=== PATIENT | female | born 1980 | race Caucasian/White ===

== ENCOUNTER 2023-01-10 12:18 | Emergency (ER) | payer OTHER ==
[2023-01-10 12:27] VITALS: TEMP 98.3; BMI 28.3
[2023-01-10] MEDS ORDERED: MAG HYDROX/AL HYDROX/SIMETH -MYLANTA- ORAL SUSPENSION PO ONE (13:10)
[2023-01-10] MEDS ORDERED: PANTOPRAZOLE SODIUM 40 MG VIAL IVPUSH ONE (13:10)
[2023-01-10] MEDS ORDERED: SUCRALFATE 1 GM/10 ML UNIT DOSE CUPS PO ONE (13:11)
[2023-01-10] MEDS ORDERED: LACTATED RINGERS SOLUTION 1000 ML INFUS.BAG IV ONE (13:11)
[2023-01-10] MEDS ORDERED: MAG HYDROX/AL HYDROX/SIMETH 30 ML UNIT-DOSE CUP ONE (13:32)
[2023-01-10] MEDS ORDERED: PANTOPRAZOLE SODIUM 40 MG VIAL ONE (13:32)
[2023-01-10] MEDS ORDERED: SUCRALFATE 1 GM TABLET (FP) ONE (13:32)
[2023-01-10 14:17] LABS: BASO % 0.5 % (0-2.0); EOS % 1.9 % (0-4.5); HEMATOCRIT 27.9 % (32.4-45.2); HEMOGLOBIN 8.6 GM/dL (10.7-15.3); LYMPH % 23.7 % (8-40); MCH 21.1 pg (25.7-33.7); MCHC 30.9 g/dl (32.0-36.0); MEAN CELL VOLUME 68.4 fl (80-96); MEAN PLT VOLUME 7.9 fl (7.5-11.1); MONO % 8.3 % (3.8-10.2); NEUT % 65.6 % (42.8-82.8); PLATELET COUNT 326 10^3/uL (134-434); RBC 4.08 M/mm3 (3.60-5.2); RDW 16.8 % (11.6-15.6); WHITE BLOOD COUNT 5.3 K/mm3 (4.0-10.0)
[2023-01-10 14:20] LABS: EPI CELLS 7 /uL (0-25.1); HYALINE CASTS 0 /uL (0-3.1); PH,URINE 5.5 (5.0-8.0); URINE APPEARANCE CLEAR; URINE BACTERIA 98 /uL (0-1359); URINE BILIRUBIN NEGATIVE (NEGATIVE); URINE COLOR YELLOW; URINE GLUCOSE (UA) NEGATIVE (NEGATIVE); URINE KETONE NEGATIVE (NEGATIVE); URINE LEUK ESTERASE NEGATIVE (NEGATIVE); URINE NITRITE NEGATIVE (NEGATIVE); URINE PROTEIN NEGATIVE (NEGATIVE); URINE RBC 276 /uL (0-23.9); URINE UROBILINOGEN 0.2 mg/dL (0.2-1.0); URINE WBC 16 /uL (0-25.8)
[2023-01-10 14:46] LABS: CALCIUM 9.5 mg/dL (8.5-10.1)
[2023-01-10 14:47] LABS: ALBUMIN 3.8 g/dl (3.4-5.0)
[2023-01-10 14:50] LABS: CREATININE 0.8 mg/dL (0.55-1.3)
[2023-01-10 14:51] LABS: BILIRUBIN,TOTAL 0.3 mg/dL (0.2-1); TOT PROT 7.4 g/dl (6.4-8.2)
[2023-01-10 15:14] LABS: ANISOCYTOSIS 2+; MACROCYTOSIS 0; OVALOCYTE 2+; TEAR DROP CELLS 1+
[2023-01-10 19:23] VITALS: BP 107/71; PULSE 86; RESP 20
== END 2023-01-10 19:30 | disposition home or self-care (01) ==
LOC: JER 12:18
PROC: 3E033GC Introduction of Other Therapeutic Substance into Peripheral Vein, Percutaneous Approach (ICD-10-PCS; principal; 2023-01-10)
DX: R10.13 Epigastric pain (principal)
CPT/HCPCS: 36415; 71046-TC-FY; 71275-TC; 80053; 80307; 81003; 83690; 84484; 84703; 85025; 85379; 93005; 93010; 99285-25; Q9967

== ENCOUNTER 2023-02-25 11:33 | Emergency (ER) | payer OTHER ==
[2023-02-25 11:54] VITALS: RESP 18; BMI 28.8
[2023-02-25] MEDS ORDERED: morphine CARPU-JECT 4 MG/1 ML DISP.SYRIN IVPUSH ONE (12:50)
[2023-02-25 13:24] LABS: BASO % 0.4 % (0-2.0); EOS % 1.2 % (0-4.5); EPI CELLS 13 /uL (0-25.1); HEMATOCRIT 34.7 % (32.4-45.2); HEMOGLOBIN 11.6 GM/dL (10.7-15.3); HYALINE CASTS 0 /uL (0-3.1); LYMPH % 19.2 % (8-40); MCH 25.2 pg (25.7-33.7); MCHC 33.4 g/dl (32.0-36.0); MEAN CELL VOLUME 75.5 fl (80-96); MEAN PLT VOLUME 8.4 fl (7.5-11.1); MONO % 7.6 % (3.8-10.2); NEUT % 71.6 % (42.8-82.8); PLATELET COUNT 298 10^3/uL (134-434); RDW 24.5 % (11.6-15.6); URINE APPEARANCE TURBID; URINE BACTERIA 2 /uL (0-1359); URINE BILIRUBIN 1+ (NEGATIVE); URINE COLOR RED; URINE GLUCOSE (UA) NEGATIVE (NEGATIVE); URINE KETONE NEGATIVE (NEGATIVE); URINE LEUK ESTERASE 2+ (NEGATIVE); URINE NITRITE NEGATIVE (NEGATIVE); URINE PROTEIN 2+ (NEGATIVE); URINE UROBILINOGEN 0.2 mg/dL (0.2-1.0); URINE WBC 82 /uL (0-25.8); WHITE BLOOD COUNT 6.4 K/mm3 (4.0-10.0)
[2023-02-25] MEDS ORDERED: morphine SULFATE 4 MG/ML VIAL ONE (13:24)
[2023-02-25 13:28] LABS: INR 1.07 (0.83-1.09); PROTHROMBIN TIME (PATIENT) 12.4 SEC (9.7-13.0)
[2023-02-25 13:31] LABS: ACTIVATED PTT 29.8 SECONDS (25.2-36.5)
[2023-02-25 13:36] LABS: URINE RBC 44549 /uL (0-23.9)
[2023-02-25 13:49] LABS: POTASSIUM 4.8 mmol/L (3.5-5.1)
[2023-02-25 13:54] LABS: ALBUMIN 3.8 g/dl (3.4-5.0); BLOOD UREA NITROGEN 9.6 mg/dL (7-18); CALCIUM 9.2 mg/dL (8.5-10.1)
[2023-02-25 13:58] LABS: CREATININE 0.8 mg/dL (0.55-1.3)
[2023-02-25 13:59] LABS: BILIRUBIN,TOTAL 0.2 mg/dL (0.2-1); TOT PROT 7.4 g/dl (6.4-8.2)
[2023-02-25 15:13] LABS: YEAST NEGATIVE (NEGATIVE)
[2023-02-25 15:49] VITALS: BP 135/95; PULSE 72; TEMP 98.1
[2023-02-25 19:16] LABS: ANISOCYTOSIS 3+; MACROCYTOSIS 0; OVALOCYTE 1+
== END 2023-02-25 16:14 | disposition home or self-care (01) ==
LOC: JER 11:33
PROC: 3E033GC Introduction of Other Therapeutic Substance into Peripheral Vein, Percutaneous Approach (ICD-10-PCS; principal; 2023-02-25)
DX: D25.9 Leiomyoma of uterus, unspecified (principal); R10.2 Pelvic and perineal pain; R42 Dizziness and giddiness; R53.1 Weakness; N93.9 Abnormal uterine and vaginal bleeding, unspecified
CPT/HCPCS: 36415; 76830-TC; 80053; 80307; 81003; 84703; 85025; 85610; 85730; 86850; 86900; 86901; 87086; 99284-25

== ENCOUNTER 2023-03-11 04:13 | Inpatient (IN) | payer OTHER ==
[2023-03-07 09:44] VITALS: BMI 29.1
[2023-03-11] MEDS ORDERED: MIDAZOLAM HCL 2 MG/2 ML SINGLE DOSE VIAL ONE (07:32)
[2023-03-11] MEDS ORDERED: ROCURONIUM BROMIDE 50 MG/5 ML SYRINGE ONE ×2 (07:32→09:33)
[2023-03-11] MEDS ORDERED: SEVOFLURANE 250 ML BTL ONE (07:32)
[2023-03-11] MEDS ORDERED: PROPOFOL 20 ML ONE (07:32)
[2023-03-11] MEDS ORDERED: DEXAMETHASONE SOD PHOSPHATE 4 MG/1 ML VIAL ONE (07:33)
[2023-03-11] MEDS ORDERED: ONDANSETRON 4 MG/2 ML VIAL ONE (07:33)
[2023-03-11] MEDS ORDERED: LIDOCAINE HCL/PF 2% SDV 5ML VIAL ONE (07:33)
[2023-03-11] MEDS ORDERED: ceFAZolin SODIUM 1 GM VIAL ONE (07:33)
[2023-03-11] MEDS ORDERED: BUPIVACAINE LIPOSOME/PF (EXPAREL) 266 MG/20 ML VIAL ONE (07:51)
[2023-03-11] MEDS ORDERED: BUPIVACAINE HCL/PF 0.5% (5MG/ML) 10 ML VIAL ONE (07:51)
[2023-03-11] MEDS ORDERED: ONDANSETRON 4 MG/2 ML VIAL IVPUSH PRN (07:57)
[2023-03-11] MEDS ORDERED: oxyCODONE HCL 5 MG TABLET PO PRN ×2 (07:57)
[2023-03-11] MEDS ORDERED: PROMETHAZINE HCL 25 MG/1 ML VIAL IVPB PRN (07:57)
[2023-03-11] MEDS ORDERED: LACTATED RINGERS SOLUTION 1,000 ML IV SCH (08:00)
[2023-03-11] MEDS ORDERED: CEFAZOLIN SODIUM 2 GM in DEXTROSE 5%-WATER 100 ML IVPB ONE (08:31)
[2023-03-11] MEDS ORDERED: TRANEXAMIC ACID 1000 MG/10 ML VIAL IVPUSH ONE (08:31)
[2023-03-11] MEDS ORDERED: HYDROmorphone HCl 2 MG/ML VIAL ONE (08:48)
[2023-03-11] MEDS ORDERED: KETOROLAC TROMETHAMINE 30 MG/1 ML VIAL ONE (08:54)
[2023-03-11] MEDS ORDERED: ceFAZolin SODIUM 1 GM VIAL IVPB ONE (09:06)
[2023-03-11] MEDS ORDERED: GLYCOPYRROLATE 0.2 MG/1 ML VIAL ONE ×2 (10:11→10:47)
[2023-03-11] MEDS ORDERED: NEOSTIGMINE METHYLSULFATE 0.5 MG/1 ML - 10 ML MDV ONE (10:11)
[2023-03-11] MEDS ORDERED: HYDROmorphone *PCA* 10MG/50ML DISP.SYRIN ONE (11:18)
[2023-03-11] MEDS ORDERED: DEXAMETHASONE SOD PHOSPHATE 4 MG/1 ML VIAL IVPUSH PRN (11:23)
[2023-03-11] MEDS ORDERED: HYDROmorphone *PCA* 10MG/50ML DISP.SYRIN PCA SCH (11:30)
[2023-03-11] MEDS: ACETAMINOPHEN 1000 MG/100 ML BAG IVPB PRN (13:00)
[2023-03-11] MEDS ORDERED: ACETAMINOPHEN INJECTION 100 ML IVPB ONE (13:10)
[2023-03-11 14:02] VITALS: RESP 18
[2023-03-11] MEDS: CEFAZOLIN SODIUM 2 GM in DEXTROSE 5%-WATER 100 ML IVPB SCH (18:02)
[2023-03-12] MEDS: CEFAZOLIN SODIUM 2 GM in DEXTROSE 5%-WATER 100 ML IVPB SCH ×2 (01:49→10:03)
[2023-03-12] MEDS: ACETAMINOPHEN 1000 MG/100 ML BAG IVPB PRN (05:49)
[2023-03-12 06:48] LABS: BASO % 0.5 % (0-2.0); EOS % 0.2 % (0-4.5); HEMATOCRIT 27.2 % (32.4-45.2); HEMOGLOBIN 9.5 GM/dL (10.7-15.3); LYMPH % 10.8 % (8-40); MEAN CELL VOLUME 77.1 fl (80-96); MEAN PLT VOLUME 7.9 fl (7.5-11.1); NEUT % 79.5 % (42.8-82.8); PLATELET COUNT 226 10^3/uL (134-434); RBC 3.53 M/mm3 (3.60-5.2); RDW 22.5 % (11.6-15.6); WHITE BLOOD COUNT 10.3 K/mm3 (4.0-10.0)
[2023-03-12 07:03] LABS: POTASSIUM 3.9 mmol/L (3.5-5.1)
[2023-03-12 07:05] LABS: ALBUMIN 2.8 g/dl (3.4-5.0); BLOOD UREA NITROGEN 10.3 mg/dL (7-18); CALCIUM 8.1 mg/dL (8.5-10.1)
[2023-03-12 07:08] LABS: CREATININE 0.7 mg/dL (0.55-1.3)
[2023-03-12 07:10] LABS: BILIRUBIN,TOTAL 0.3 mg/dL (0.2-1); TOT PROT 5.8 g/dl (6.4-8.2)
[2023-03-12 08:53] LABS: ANISOCYTOSIS 3+; MACROCYTOSIS 0
[2023-03-12] MEDS ORDERED: ACETAMINOPHEN 325 MG TABLET (FP) PO PRN (09:08)
[2023-03-12] MEDS ORDERED: DOCUSATE SODIUM 100 MG CAPSULE (FP) PO PRN (09:08)
[2023-03-12] MEDS ORDERED: oxyCODONE HCL 5 MG TABLET PO PRN (09:08)
[2023-03-12] MEDS: IBUPROFEN 600 MG TABLET (FP) PO PRN (16:48)
[2023-03-13] MEDS: IBUPROFEN 600 MG TABLET (FP) PO PRN (08:12)
[2023-03-13 10:02] VITALS: BP 120/80; PULSE 93; TEMP 98
== END 2023-03-13 14:30 | disposition home or self-care (01) | DRG 743 ==
LOC: J2C 04:13 → J3W 13:53
PROVIDERS: ADMIT Obstetrics & Gynecology; ATTEND Obstetrics & Gynecology
PROC: 0UB50ZZ Excision of Right Fallopian Tube, Open Approach (ICD-10-PCS; 2023-03-11)
PROC: 0UB90ZZ Excision of Uterus, Open Approach (ICD-10-PCS; principal; 2023-03-11 08:00)
DX: D25.0 Submucous leiomyoma of uterus (principal); N92.0 Excessive and frequent menstruation with regular cycle; N94.6 Dysmenorrhea, unspecified; N83.6 Hematosalpinx; N70.11 Chronic salpingitis
CPT/HCPCS: 36415; 80053; 81025; 85025; 88305-TC; 88331-TC; 88341-TC; 94010; 94760

== ENCOUNTER 2024-03-02 12:29 | Emergency (ER) | payer OTHER ==
[2024-03-02 12:53] VITALS: BP 117/77; PULSE 80; RESP 17; TEMP 98.2; BMI 29.2
[2024-03-02] MEDS ORDERED: ACETAMINOPHEN INJECTION 100 ML IVPB ONE (13:45)
[2024-03-02 13:47] LABS: BASO % 0.3 % (0-2.0); EOS % 1.1 % (0-4.5); HEMATOCRIT 35.6 % (32.4-45.2); HEMOGLOBIN 11.8 GM/dL (10.7-15.3); LYMPH % 27.5 % (8-40); MCH 28.1 pg (25.7-33.7); MCHC 33.3 g/dl (32.0-36.0); MEAN CELL VOLUME 84.4 fl (80-96); MEAN PLT VOLUME 7.9 fl (7.5-11.1); MONO % 8.3 % (3.8-10.2); NEUT % 62.8 % (42.8-82.8); PLATELET COUNT 297 10^3/uL (134-434); RBC 4.22 M/mm3 (3.60-5.2); RDW 13.2 % (11.6-15.6); WHITE BLOOD COUNT 6.3 K/mm3 (4.0-10.0)
[2024-03-02 13:50] LABS: HCG,QUALITATIVE URINE Negative
[2024-03-02 13:51] LABS: EPI CELLS 9 /uL (0-25.1); HYALINE CASTS 1 /uL (0-3.1); URINE APPEARANCE CLOUDY; URINE BACTERIA 5 /uL (0-1359); URINE BILIRUBIN NEGATIVE (NEGATIVE); URINE COLOR RED; URINE GLUCOSE (UA) NEGATIVE (NEGATIVE); URINE KETONE NEGATIVE (NEGATIVE); URINE LEUK ESTERASE 1+ (NEGATIVE); URINE NITRITE NEGATIVE (NEGATIVE); URINE PROTEIN 1+ (NEGATIVE); URINE RBC 22415 /uL (0-23.9); URINE UROBILINOGEN 0.2 mg/dL (0.2-1.0); URINE WBC 28 /uL (0-25.8)
[2024-03-02] MEDS: SODIUM CHLORIDE 0.9% 500 ML INFUS.BAG IV ONE (13:54)
[2024-03-02] MEDS: ACETAMINOPHEN 1000 MG/100 ML BAG IVPB ONE (13:55)
[2024-03-02 14:04] LABS: POTASSIUM 4.3 mmol/L (3.5-5.1)
[2024-03-02 14:07] LABS: CALCIUM 9.4 mg/dL (8.5-10.1)
[2024-03-02 14:08] LABS: ALBUMIN 3.9 g/dl (3.4-5.0); BLOOD UREA NITROGEN 10.1 mg/dL (7-18)
[2024-03-02 14:11] LABS: CREATININE 0.9 mg/dL (0.55-1.3)
[2024-03-02 14:13] LABS: BILIRUBIN,TOTAL 0.3 mg/dL (0.2-1); TOT PROT 7.4 g/dl (6.4-8.2)
== END 2024-03-02 17:33 | disposition home or self-care (01) ==
LOC: JER 12:29
PROC: 3E033NZ Introduction of Analgesics, Hypnotics, Sedatives into Peripheral Vein, Percutaneous Approach (ICD-10-PCS; principal; 2024-03-02)
DX: R10.31 Right lower quadrant pain (principal); R11.0 Nausea; R19.7 Diarrhea, unspecified; R35.0 Frequency of micturition
CPT/HCPCS: 36415; 74177-TC; 76830-TC; 80053; 81003; 84703; 85025; 99285-25; J0131; Q9967